=== PATIENT | female | born 1965 | race Caucasian/White ===

== ENCOUNTER → 2022-12-05 | Emergency (ER) | payer BC, OTHER ==
[~2022-12-05] VITALS: Ht 165.1 cm; Wt 67.7 kg
[~2022-12-05] MED LIST: ACET1CAP14 PO; CLIN300C8 PO; NEOMYCIN-BACITRACIN-POLYM UNITDOSE PKG TOP OINT TOP ONE; TETANUS-DIPTH-ACEL PERTUSSIS 0.5ML SYR Tdap IM ONE
[2022-12-05 18:12] VITALS: BP 141/56
== END | disposition home or self-care (01) ==
LOC: ER 13:06
DX: L03.011 Cellulitis of right finger (principal); F17.210 Nicotine dependence, cigarettes, uncomplicated; Z88.0 Allergy status to penicillin; Z88.2 Allergy status to sulfonamides; Z91.018 Allergy to other foods
CPT/HCPCS: 90471; 90715

== ENCOUNTER 2023-09-30 14:12 | Emergency (ER) | payer BC, OTHER ==
[~2023-09-30] VITALS: Ht 165.1 cm; Wt 66.4 kg
[~2023-09-30 14:12] MED LIST changes: +CLIN300C70 PO; -CLIN300C8 PO; -NEOMYCIN-BACITRACIN-POLYM UNITDOSE PKG TOP OINT TOP ONE; -TETANUS-DIPTH-ACEL PERTUSSIS 0.5ML SYR Tdap IM ONE
[2023-09-30 14:57] VITALS: BP 145/72; PULSE 94; RESP 16; O2SAT 97
== END 2023-09-30 16:51 | disposition left against medical advice (07) ==
LOC: ER 14:12
DX: M79.644 Pain in right finger(s) (principal); Z53.21 Procedure and treatment not carried out due to patient leaving prior to being seen by health care provider; W54.0XXA Bitten by dog, initial encounter; Y93.89 Activity, other specified; Y92.89 Other specified places as the place of occurrence of the external cause; Y99.8 Other external cause status